=== PATIENT | male | born 1980 | race Caucasian/White ===

== ENCOUNTER 2021-07-15 02:08 | Emergency (ER) | payer SELFPAY ==
[~2021-07-15] VITALS: Ht 175.3 cm; Wt 77.1 kg
[2021-07-15 02:13] VITALS: BP 153/93
[2021-07-15] MEDS ORDERED: IBUP-1957 PO (02:21)
[2021-07-15] MEDS ORDERED: CYCL5TAB PO (02:21)
[2021-07-15] MEDS ORDERED: KETOROLAC TROMETHAMINE INJ 30 MG/ML VIAL ONE (02:25)
[2021-07-15] MEDS ORDERED: CYCLOBENZAPRINE 10 MG TABLET ONE (02:25)
[2021-07-15] MEDS: CYCLOBENZAPRINE 10 MG TABLET PO ONE (02:31)
[2021-07-15] MEDS: KETOROLAC TROMETHAMINE INJ 30 MG/ML VIAL IM ONE (02:35)
== END 2021-07-15 02:35 | disposition home or self-care (01) ==
LOC: ER 02:12
DX: S16.1XXA Strain of muscle, fascia and tendon at neck level, initial encounter (principal); Z79.899 Other long term (current) drug therapy; X58.XXXA Exposure to other specified factors, initial encounter; Y93.89 Activity, other specified; Y92.89 Other specified places as the place of occurrence of the external cause; Y99.8 Other external cause status
CPT/HCPCS: J1885

== ENCOUNTER 2021-07-15 03:29 | Emergency (ER) | payer SELFPAY ==
[~2021-07-15] VITALS: Ht 172.7 cm; Wt 77.1 kg
[~2021-07-15 03:29] MED LIST: CYCL5TAB PO; IBUP-1957 PO
[2021-07-15] MEDS ORDERED: KETOROLAC TROMETHAMINE INJ 30 MG/ML VIAL ONE (03:33)
[2021-07-15] MEDS: KETOROLAC TROMETHAMINE INJ 60 MG/2 ML VIAL IM ONE (03:40)
[2021-07-15 03:42] VITALS: BP 131/75
== END 2021-07-15 03:45 | disposition home or self-care (01) ==
LOC: ER 03:32
DX: S16.1XXA Strain of muscle, fascia and tendon at neck level, initial encounter (principal); Z76.5 Malingerer [conscious simulation]; Z79.899 Other long term (current) drug therapy; X58.XXXA Exposure to other specified factors, initial encounter; Y93.89 Activity, other specified; Y92.89 Other specified places as the place of occurrence of the external cause; Y99.8 Other external cause status
CPT/HCPCS: 96372; 99283; J1885

== ENCOUNTER 2021-07-15 13:41 | Inpatient (IN) | payer OTHER ==
[~2021-07-15] VITALS: Ht 175.3 cm; Wt 79.4 kg
--- NOTE | 2021-07-15 14:00 | NUR ---
PATIENT PLACED ON 2 POINT VELCRO/NYLON RESTRAINTS DUE TO AGITATION. [employer] AT BEDSIDE. PATIENT IN STABLE CONDITION.
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
[2021-07-15] MEDS ORDERED: LORAZEPAM INJ 2 MG/ML VIAL IM ONE ×3 (14:30→22:00)
[2021-07-15] MEDS ORDERED: diphenhydrAMINE HCL 50 MG/ML VIAL IM ONE ×3 (14:30→22:00)
[2021-07-15] MEDS ORDERED: diphenhydrAMINE HCL 50 MG/ML VIAL ONE ×2 (14:31→19:25)
[2021-07-15] MEDS ORDERED: LORAZEPAM INJ 2 MG/ML VIAL ONE ×2 (14:32→19:25)
[2021-07-15 14:57] LABS: BASOPHILS % (AUTO) 0.2 % (0.0-2.0); EOSINOPHILS % (AUTO) 0.2 % (0.0-6.0); HEMATOCRIT 49 % (39-51); LYMPHOCYTES # (AUTO) 1.1 K/uL (0.8-4.8); LYMPHOCYTES % (AUTO) 11.9 % (20.0-44.0); MEAN CORPUSCULAR HGB CONC 35 g/dl (31.0-36.0); MEAN CORPUSCULAR VOLUME 97 fL (80-96); MONOCYTES # (AUTO) 0.9 K/uL (0.1-1.30); MONOCYTES % (AUTO) 9.4 % (2.0-12.0); NEUTROPHILS # (AUTO) 7.3 K/uL (1.8-8.9); NEUTROPHILS % (AUTO) 78.3 % (43.0-81.0); PLATELET COUNT (AUTO) 200 K/uL (150-450); RED BLOOD CELL COUNT(AUTO) 5.07 MIL/uL (4.5-6.0); WHITE BLOOD COUNT (AUTO) 9.3 K/uL (4.3-11.0)
[2021-07-15 15:11] LABS: CALCIUM, SERUM 9.5 mg/dL (8.5-10.1); CARBON DIOXIDE 25 mmol/L (21-32); CHLORIDE 100 mmol/L (98-107); CREATININE 1.4 mg/dL (0.6-1.3); GLUCOSE 96 mg/dL (74-106); POTASSIUM 3.1 mmol/L (3.5-5.1); SODIUM SERUM 142 mmol/L (136-145); UREA NITROGEN, BLOOD 13 mg/dL (7-18)
[2021-07-15 15:19] LABS: ALANINE AMINOTRANSFERASE 169 U/L (12-78); ALBUMIN 4.7 g/dL (3.4-5.0); ALCOHOL, BLOOD < 3 mg/dL (0-0); ALKALINE PHOSPHATASE 98 U/L (46-116); ASPARTATE AMINOTRANSFERASE 185 U/L (15-37); BILIRUBIN,DIRECT 0.3 mg/dL (0.0-0.2); BILIRUBIN,TOTAL 1.4 mg/dL (0.2-1.0); TOTAL PROTEIN, SERUM 8.7 g/dL (6.4-8.2)
[2021-07-15 15:20] LABS: ACETAMINOPHEN < 0 ug/ml (10-30)
[2021-07-15 15:29] LABS: BILIRUBIN,URINE MODERATE (NEGATIVE); COLOR,URINE DARK YELLOW (YELLOW); LEUKOCYTE ESTERASE ,URINE Trace (NEGATIVE); NITRITE, URINE Negative (NEGATIVE); PROTEIN,URINE 100 mg/dl (NEGATIVE); UGLUCOSE Negative (NEGATIVE)
[2021-07-15 15:44] LABS: BACTERIA,URINE Few /HPF (None Seen); MUCUS,URINE Moderate /LPF (None Seen); SQUAMOUS EPITHELIAL CELL,UR Few /HPF (None Seen)
[2021-07-15] MEDS ORDERED: IV NS 0.9% 1,000 ML IV ONE (16:30)
--- NOTE | 2021-07-15 16:30 | NUR ---
PATIENT ASLEEP, RESTRAINTS REMOVED.
--- NOTE | 2021-07-15 18:10 | NUR ---
CALLED [facility]. PAGED DR. ARANDA.
[2021-07-15] MEDS ORDERED: POTASSIUM CHLORIDE 20 MEQ TAB.PRT.SR PO ONE ×2 (19:30→20:24)
[2021-07-15] MEDS ORDERED: HYDROCODONE/APAP 5/325MG TABLET PO PRN (19:30)
[2021-07-15] MEDS ORDERED: HYDROCODONE/APAP 10/325MG TABLET PO PRN (19:30)
[2021-07-15] MEDS ORDERED: MAGNESIUM HYDROXIDE 30 ML UDC PO PRN (19:30)
[2021-07-15] MEDS ORDERED: ACETAMINOPHEN 325 MG TABLET PO PRN (19:30)
[2021-07-15] MEDS ORDERED: MAG HYDROX/AL HYDROX/SIMETH 30 ML UDC PO PRN (19:30)
[2021-07-15] MEDS ORDERED: LORAZEPAM INJ 2 MG/ML VIAL IV PRN ×2 (19:30→22:30)
[2021-07-15] MEDS ORDERED: Z GUARD REMEDY 2 OZ OINT TP PRN (19:30)
[2021-07-15] MEDS ORDERED: ONDANSETRON HCL/PF 4 MG/2 ML VIAL IVP PRN (19:30)
[2021-07-15] MEDS ORDERED: OLANZAPINE 10 MG VIAL IM PRN (20:00)
[2021-07-15] MEDS: IV NS 0.9% 1,000 ML IV PRN (20:00)
[2021-07-15] MEDS ORDERED: OLANZAPINE 10 MG VIAL IM ONE (20:19)
[2021-07-15] MEDS ORDERED: LORAZEPAM INJ 2 MG/ML VIAL IV ONE (21:00)
[2021-07-15] MEDS ORDERED: HALOPERIDOL LACTATE INJ 5 MG/ML VIAL ONE (21:35)
[2021-07-15] MEDS ORDERED: HALOPERIDOL LACTATE INJ 5 MG/ML VIAL IM ONE (22:00)
[2021-07-16 00:15] LABS: CALCIUM, SERUM 8.3 mg/dL (8.5-10.1); POTASSIUM 3.1 mmol/L (3.5-5.1)
[2021-07-16 05:46] LABS: BASOPHILS % (AUTO) 0.4 % (0.0-2.0); EOSINOPHILS % (AUTO) 1.3 % (0.0-6.0); HEMATOCRIT 46 % (39-51); HEMOGLOBIN 15.5 g/dL (13.5-17.5); LYMPHOCYTES # (AUTO) 1.2 K/uL (0.8-4.8); LYMPHOCYTES % (AUTO) 23.1 % (20.0-44.0); MEAN CORPUSCULAR HGB CONC 34 g/dl (31.0-36.0); MEAN CORPUSCULAR VOLUME 98 fL (80-96); MONOCYTES # (AUTO) 0.4 K/uL (0.1-1.30); MONOCYTES % (AUTO) 8.3 % (2.0-12.0); NEUTROPHILS # (AUTO) 3.4 K/uL (1.8-8.9); NEUTROPHILS % (AUTO) 66.9 % (43.0-81.0); PLATELET COUNT (AUTO) 140 K/uL (150-450); RED BLOOD CELL COUNT(AUTO) 4.64 MIL/uL (4.5-6.0); WHITE BLOOD COUNT (AUTO) 5.1 K/uL (4.3-11.0)
[2021-07-16 05:58] LABS: CALCIUM, SERUM 8.1 mg/dL (8.5-10.1); MAGNESIUM 2.4 mg/dL (1.8-2.4); PHOSPHORUS 4.3 mg/dL (2.5-4.9); POTASSIUM 3.3 mmol/L (3.5-5.1)
[2021-07-16] MEDS: IV NS 0.9% 1,000 ML IV PRN ×2 (07:00→23:52)
[2021-07-16] MEDS ORDERED: PANTOPRAZOLE 40 MG TABLET.DR PO SCH (07:30)
--- NOTE | 2021-07-16 07:30 | NUR ---
PATIENT IN BED ASLEEP, NO DISTRESS NOTED. IN STABLE CONDITION.
[2021-07-16] MEDS ORDERED: POTASSIUM CL. PREMIX PERIPHER. 200 ML ONE (07:47)
[2021-07-16] MEDS ORDERED: PANTOPRAZOLE 40 MG TABLET.DR PO ONE (07:48)
[2021-07-16] MEDS: POTASSIUM CL. PREMIX PERIPHER. 50 ML IV SCH ×4 (07:55→10:00)
--- NOTE | 2021-07-16 12:45 | NUR ---
Ubaldo carias in EDM - 07/16/21 at 1246 by TONIA PATIENT PLACED ON 2 POINT VELCRO/NYLON RESTRAINTS DUE TO AGITATION. [employer] AT BEDSIDE. PATIENT IN STABLE CONDITION.
--- NOTE | 2021-07-16 14:17 | NUR ---
ASSIGNED 110
--- NOTE | 2021-07-16 14:52 | NUR ---
REPORT GIVEN TO COLLIN BYERS FOR RUSSELL.
--- NOTE | 2021-07-16 15:14 | NUR ---
PATIENT TRANSFERRED TO ROOM 110 VIA ACLS PROTOCOL. IN STABLE CONDITION.
--- NOTE | 2021-07-16 19:45 | NUR ---
RN OPENING NOTE Received pt. in bed, A/o x4, withdrawn and uncooperative. States he would like to leave AMA, Jack Cervantes notified; pending response. Pt is currently stable on room air with no SOB or s/s or resp. distress noted. (L) AC #20 IV running NS @ 150 ml/hr; IV was flushed and patent with clean and dry dressing. Sitter Aracelis GOMEZ at bedside for pt. reorientation. Urinal within reach. Safety measures implemented: bed locked in lowest position, call light within reach, side rails up x2, bed alarm on. No other distress noted at this time.
[2021-07-16 20:00] VITALS: BP 130/85
--- NOTE | 2021-07-16 21:00 | NUR ---
RN NOTE Jack Cervantes CEMENT SIDE LASTER assessed pt at bedside and stated that there must be a psych consult completed before possible discharge/ AMA. Pt. continues to be very disoriented and agitated. Pending psych consult.
--- NOTE | 2021-07-17 01:18 | NUR ---
ms rn notes Seen and assess by Damon yi from crisis team said Patient does not meet inpt criteria, pts said he well stay the whole nite ,pts is cooperative at this time ,1:1 sitter at bedside will continue to monitor pts,
[2021-07-17 04:00] VITALS: BP 130/78
--- NOTE | 2021-07-17 05:45 | NUR ---
RN NOTE Patient left hospital AMA. Patient was assessed by psychiatric evaluation team Nicolette and deemed capable of making his own decisions. He was educated on consequences of leaving hospital prior to medical providers discharge orders. He verbalized understanding and became combative and agitated and insisted in leaving. Jack Cervantes SUPERANNUATION FUNDS MANAGER, charge nurse Roxana and nursing supervisor stripping aware. Patient escorted out of hospital premises with steady gait and no other distress noted.
== END 2021-07-17 05:44 | disposition left against medical advice (07) | DRG 557 ==
LOC: ER 13:55 → TRANSITION 19:59 → MEDSG1 07-16 14:37
PROVIDERS: ADMIT Nurse Practitioner Acute Care; ATTEND Student in an Organized Health Care Education/Training Program
DX: M62.82 Rhabdomyolysis (principal); N17.0 Acute kidney failure with tubular necrosis; F15.159 Other stimulant abuse with stimulant-induced psychotic disorder, unspecified; E87.6 Hypokalemia; F17.210 Nicotine dependence, cigarettes, uncomplicated; F12.90 Cannabis use, unspecified, uncomplicated; Z59.00 Homelessness unspecified; Z78.1 Physical restraint status; F41.9 Anxiety disorder, unspecified; R74.01 Elevation of levels of liver transaminase levels; R74.8 Abnormal levels of other serum enzymes; Z20.822 Contact with and (suspected) exposure to COVID-19
CPT/HCPCS: 36415; 80048-TC; 80076-TC; 81001; 82550-TC; 82553; 83735-TC; 84100-TC; 85025-TC; 87081-TC; 87086-TC; C9803; G0378; G0480; J1200; J1630; J2060; J3230; J3480; J3490; J7030; U0003